=== PATIENT | male | born 1945 | race Caucasian/White ===

== ENCOUNTER 2018-10-31 20:29 | Emergency (ER) | payer MEDICARE, OTHER ==
[~2018-10-31] VITALS: Ht 170.2 cm; Wt 93.0 kg
[~2018-10-31 20:29] MED LIST: AMOCLA875 PO; CIPHYDOTSU OT; CIPR500 PO; FLUO20 PO; OXYACE5T PO; SIMV80 PO
[2018-10-31] MEDS ORDERED: PYRIDOSTIGMINE180 MG PO (20:52)
[2018-10-31] MEDS ORDERED: MYCOPHENOLATE500 MG PO (20:52)
[2018-10-31] MEDS ORDERED: ATORVASTATIN CA40 MG PO (20:53)
[2018-10-31] MEDS ORDERED: COREG6.25 MG PO (20:53)
[2018-10-31 21:30] LABS: Source, Urine Clean Catch
[2018-10-31 21:36] LABS: Blood, Urine 5+ (Neg); Glucose Qualitative, Urine 1+ (Neg); Ketones, Urine 2+ (Neg); Leukocyte Esterase, Urine 1+ (Neg); Nitrite, Urine Pos (Neg); Protein, Urine 3+ (Neg); Urobilinogen, Urine 1+ (Normal)
[2018-10-31 21:37] LABS: Appearance, Urine Cloudy (Clear); Bilirubin, Urine 1+ (Neg); Color, Urine Brown (P-Yellow)
[2018-10-31 21:45] LABS: Red Blood Cells, Urine TNTC /hpf (0-2); White Blood Cells, Urine 0-2 /hpf (0-5)
[2018-10-31 21:47] LABS: Amorphous Light (0-Heavy); Bacteria Many /hpf; Calcium Oxalate Crystals Few /hpf; Mucus Light (0-Heavy); Squamous Epithelial Cells Few /hpf (Few)
== END 2018-10-31 22:01 | disposition home or self-care (01) ==
LOC: ER 20:29
PROVIDERS: Physician Assistant
DX: N20.0 Calculus of kidney (principal); K42.9 Umbilical hernia without obstruction or gangrene; R82.71 Bacteriuria; I25.10 Atherosclerotic heart disease of native coronary artery without angina pectoris; G70.00 Myasthenia gravis without (acute) exacerbation; Z88.2 Allergy status to sulfonamides; Z79.899 Other long term (current) drug therapy; Z79.52 Long term (current) use of systemic steroids
CPT/HCPCS: 81001; 87086; 93005; 93010; 99283-25

== ENCOUNTER → 2019-05-29 | Outpatient (CLI) | payer MEDICARE, OTHER ==
[~2019-05-29] MED LIST changes: +ATORVASTATIN CA40 MG PO; +COREG6.25 MG PO; +MYCOPHENOLATE500 MG PO; +PYRIDOSTIGMINE180 MG PO
== END | disposition home or self-care (01) ==
LOC: LAB SHORT 10:37 → PLD 10:37
DX: C44.319 Basal cell carcinoma of skin of other parts of face (principal)
CPT/HCPCS: 88305

== ENCOUNTER 2019-06-24 02:34 | Emergency (ER) | payer MEDICARE, OTHER ==
[~2019-06-24] VITALS: Ht 170.2 cm; Wt 95.2 kg
[2019-06-24] MEDS ORDERED: Nexium10 MG PO (02:52)
[2019-06-24] MEDS ORDERED: ASPI81CH PO (02:52)
[2019-06-24] MEDS ORDERED: AMLO5 PO (02:53)
[2019-06-24 03:11] LABS: BASOPHILS ABSOLUTE AUTO 0.07 K/mm3 (0.00-0.23); BASOPHILS PERCENT AUTO 1 % (0-2); EOSINOPHILS ABSOLUTE AUTO 0.49 K/mm3 (0.00-0.68); EOSINOPHILS PERCENT AUTO 7 % (0-6); Hematocrit 48.5 % (37.0-53.0); Hemoglobin 16.2 g/dL (13.5-17.5); IMMATURE GRAN ABSOLUTE AUTO 0.01 K/mm3 (0.00-0.10); IMMATURE GRAN PERCENT AUTO 0 % (0-1); LYMPHOCYTES ABSOLUTE AUTO 1.91 K/mm3 (0.84-5.20); LYMPHOCYTES PERCENT AUTO 27 % (21-46); MONOCYTES ABSOLUTE AUTO 0.54 K/mm3 (0.16-1.47); MONOCYTES PERCENT AUTO 8 % (4-13); Mean Corpuscular HGB 30.2 pg (26.0-34.0); Mean Corpuscular HGB Conc 33.4 g/dL (31.5-36.5); Mean Corpuscular Volume 90 fL (80-100); Mean Platelet Volume 10.7 fL (9.1-12.4); NEUTROPHILS ABSOLUTE AUTO 4.09 K/mm3 (1.96-9.15); NEUTROPHILS PERCENT AUTO 58 % (41-73); Platelet Count 241 K/mm3 (150-400); RDW Standard Deviation 42.8 fL (35.1-46.3); Red Blood Cell Count 5.37 M/mm3 (4.30-5.90); White Blood Cell Count 7.11 K/mm3 (4.00-11.30)
[2019-06-24 03:56] LABS: Alanine Aminotransfer (ALT/SGP 30 U/L (12-78); Albumin/Globulin Ratio 1.2 (0.8-1.8); Alk Phos 79 U/L (50-136); Anion Gap 5 mmol/L (6-16); Aspartate Aminotrans (AST/SGOT 17 U/L (12-37); Bilirubin, Total 0.9 mg/dL (0.1-1.0); Blood Urea Nitrogen 16 mg/dL (8-24); Bun/Creatinine Ratio 20.2 (12.0-20.0); CO2, Blood 28 mmol/L (21-32); Calcium, Blood 9.1 mg/dL (8.5-10.1); Chloride, Blood 108 mmol/L (98-108); Creatinine, Blood 0.79 mg/dL (0.60-1.20); Globulin, Blood 3.4 g/dL (2.2-4.0); Glomerular Filtration Rate >60 (60-); Glucose, Blood 175 mg/dL (70-99); Magnesium, Blood 2.1 mg/dL (1.6-2.4); Sodium, Blood 141 mmol/L (136-145); Total Protein, Blood 7.4 g/dL (6.4-8.2); Troponin I <0.015 ng/mL (0.000-0.040)
[2019-06-24] MEDS ORDERED: HYDHCL25 PO (04:51)
== END 2019-06-24 05:01 | disposition home or self-care (01) ==
LOC: ER 02:34
PROVIDERS: Emergency Medicine
DX: R06.00 Dyspnea, unspecified (principal); F41.9 Anxiety disorder, unspecified; Z87.891 Personal history of nicotine dependence; Z79.899 Other long term (current) drug therapy; Z79.82 Long term (current) use of aspirin
CPT/HCPCS: 36415; 71045; 80053; 83735; 84484; 85025; 93005; 93010; 99285-25; U0003

== ENCOUNTER 2020-05-02 09:45 | Day surgery (SDC) | payer MEDICARE, OTHER ==
[~2020-05-02] VITALS: Ht 170.2 cm; Wt 96.0 kg
[~2020-05-02 09:45] MED LIST changes: +AMLO5 PO; +ASPI81CH PO; +HYDHCL25 PO; +MYCO250 PO; -MYCOPHENOLATE500 MG PO; +Nexium10 MG PO
[2020-05-02] MEDS ORDERED: FLUO10 PO (10:13)
[2020-05-02] MEDS ORDERED: Prinivil10 MG PO (10:14)
[2020-05-02] MEDS ORDERED: METF500C PO (10:14)
--- NOTE | 2020-05-02 11:36 | NUR ---
DR MORFIN IN AND DISCUSSED WITH PT THE NEED FOR ARELY PRIOR TO PROCEEDING WITH PACEMAKER. PT AND BOTH IN AGREMENT WITH PLAN.
--- NOTE | 2020-05-02 12:34 | NUR ---
ARELY FINISHED AND PT TO PROCEED WITH PACEMAKER PROCEDURE.
--- NOTE | 2020-05-02 18:05 | NUR ---
SHIFT SUMMARY PT ARRIVED THIS [facility]NOON [facility]. PT REPORTS INTERMITTEN DULL SORENESS AT THE LEFT SHOULDER BUT IS DECLINING TYLENOL AT THIS TIME. PT IS A&O X4. VS STABLE, PT ON RA. SLING IN PLACE, PT REMINDED NOT TO LIFT ELBOW AT OR ABOVE THE SHOULDER ON THE LEFT ARM. SCD'S IN PLACE AND PT PROVIDED WITH DR. MORFIN'S INSTRUCTIONS FOR PACER AFTERCARE. PT IS RESTING IN BED AT THIS TIME
--- NOTE | 2020-05-03 04:36 | NUR ---
SHIFT SUMMARY NO ACUTE CHANGES THIS SHIFT. VSS BESIDES OCCASIONAL HTN NOTED WITH SBP INTO 150'S. PT AXO. ON RA. REMAINS PACED PER TELEMETRY. PACEMAKER IMPLANT SITE PRESENTS W/OUT EXCESS SWELLING, REDNESS, HEAT, ETC. PT STATES SOME PAIN TO AREA BUT TYLENOL HELPFUL FOR RELIEF. ABX X2 INFUSED ORDERED. OTHERWISE, PT IN AND OUT OF SLING, DOESNT ALWAYS TOLERATE WELL BUT HAS BEEN GOOD AT LIMITING EXCESS MOVEMENT WITH L ARM. WILL CONTINUE TO MONITOR UNTIL SHIFT CHANGE.
[2020-05-03] MEDS ORDERED: CEPH500 PO (11:52)
== END 2020-05-03 12:03 | disposition home or self-care (01) ==
LOC: PCU 09:45 → MHTC 09:45 → PCU 09:46 → MHTC 09:46 → EDSTATUS 10:00 → MHTC 15:03 → PCU 15:03
DX: I44.2 Atrioventricular block, complete (principal); I25.10 Atherosclerotic heart disease of native coronary artery without angina pectoris; I49.8 Other specified cardiac arrhythmias; I35.0 Nonrheumatic aortic (valve) stenosis; I33.0 Acute and subacute infective endocarditis; I10 Essential (primary) hypertension; E78.5 Hyperlipidemia, unspecified; G70.00 Myasthenia gravis without (acute) exacerbation; R73.03 Prediabetes; Z96.649 Presence of unspecified artificial hip joint; Z79.82 Long term (current) use of aspirin; Z88.2 Allergy status to sulfonamides; Z95.1 Presence of aortocoronary bypass graft
CPT/HCPCS: 33208; 71045; 71046; 76937; 93312; 93325; 99152; 99153; A9270; C1781; C1785; C1894; C1898; J0690; J1644; J2250; J3010; J7030; J7040; J7517

== ENCOUNTER 2020-11-19 09:54 | Day surgery (SDC) | payer MEDICARE, OTHER ==
[~2020-11-19] VITALS: Ht 170.2 cm; Wt 96.8 kg
[~2020-11-19 09:54] MED LIST changes: +CEPH500 PO; +FLUO10 PO; +METF500C PO; +PYRI60 PO; +Prinivil10 MG PO; +TRAZ50 PO; +ZYRTEC10 M2 PO
[2020-11-19] MEDS ORDERED: ZYRTEC10 M2 (11:31)
--- NOTE | 2020-11-19 11:43 | NUR ---
Ambulatory in Day Surgery History, Chart, Medications and Allergies reviewed before start of procedure.Lungs clear T/O to Auscultation. Patient confirms NPO status and agrees with scheduled surgery. TOOK PT PHONE WITH HER.
--- NOTE | 2020-11-19 14:29 | NUR ---
1415 Patient up to Ambulate independently. Gait steady. Discharge instructions reviewed with patient. Patient verbalizes understanding. Copy given to patient to take home. Dressing to procedure site clean, dry, intact with no visible drainage, swelling, erythema or bruising noted. Patient States Post-Procedure ride home has been arranged. Discharged via wheelchair to private car for ride home. PTS GIVEN FULL DISCHARGE INSTRUCTIONS KAILEE
== END 2020-11-19 22:47 | disposition home or self-care (01) ==
LOC: ORSCMMR 09:54
PROVIDERS: Surgery
PROC: 0WUF0JZ Supplement Abdominal Wall with Synthetic Substitute, Open Approach (ICD-10-PCS; principal; 2020-11-19 11:30)
DX: K42.0 Umbilical hernia with obstruction, without gangrene (principal); I10 Essential (primary) hypertension; I21.9 Acute myocardial infarction, unspecified; Z87.891 Personal history of nicotine dependence; E66.9 Obesity, unspecified; Z68.33 Body mass index [BMI] 33.0-33.9, adult; Z79.899 Other long term (current) drug therapy
CPT/HCPCS: 82947; A9270; C1781; J0690; J1100; J1885; J2370; J2405; J2704; J3010; J7120

== ENCOUNTER 2023-01-05 12:34 | Emergency (ER) | payer OTHER ==
[~2023-01-05] VITALS: Ht 172.7 cm; Wt 94.3 kg
[~2023-01-05 12:34] MED LIST changes: +ZYRTEC10 M2
[2023-01-05 13:39] LABS: BASOPHILS ABSOLUTE AUTO 0.04 K/mm3 (0.00-0.23); BASOPHILS PERCENT AUTO 1 % (0-2); EOSINOPHILS ABSOLUTE AUTO 0.09 K/mm3 (0.00-0.68); EOSINOPHILS PERCENT AUTO 1 % (0-6); Hematocrit 46.4 % (37.0-53.0); Hemoglobin 15.9 g/dL (13.5-17.5); IMMATURE GRAN ABSOLUTE AUTO 0.03 K/mm3 (0.00-0.10); IMMATURE GRAN PERCENT AUTO 0 % (0-1); LYMPHOCYTES ABSOLUTE AUTO 1.61 K/mm3 (0.84-5.20); LYMPHOCYTES PERCENT AUTO 20 % (21-46); MONOCYTES ABSOLUTE AUTO 0.47 K/mm3 (0.16-1.47); MONOCYTES PERCENT AUTO 6 % (4-13); Mean Corpuscular HGB 31.1 pg (26.0-34.0); Mean Corpuscular HGB Conc 34.3 g/dL (31.5-36.5); Mean Corpuscular Volume 91 fL (80-100); Mean Platelet Volume 10.2 fL (9.1-12.4); NEUTROPHILS ABSOLUTE AUTO 5.69 K/mm3 (1.96-9.15); NEUTROPHILS PERCENT AUTO 72 % (41-73); Platelet Count 210 K/mm3 (150-400); RDW Coefficient Variation 13.2 % (11.7-14.2); RDW Standard Deviation 44.1 fL (35.1-46.3); Red Blood Cell Count 5.11 M/mm3 (4.30-5.90); White Blood Cell Count 7.93 K/mm3 (4.00-11.30)
[2023-01-05 14:00] VITALS: BP 135/93
[2023-01-05 14:00] LABS: Albumin/Globulin Ratio 1.3 (0.8-1.8); Bilirubin, Total 1.1 mg/dL (0.1-1.0); Bun/Creatinine Ratio 14.8 (12.0-20.0); Calcium, Blood 8.9 mg/dL (8.5-10.1); Creatinine, Blood 0.95 mg/dL (0.60-1.20); Globulin, Blood 3.1 g/dL (2.2-4.0); Potassium, Blood 4.4 mmol/L (3.5-5.5); Total Protein, Blood 7.1 g/dL (6.4-8.2)
[2023-01-05] MEDS ORDERED: PYRI60 PO (14:08)
[2023-01-05] MEDS ORDERED: TAMS.4ER PO (14:09)
== END 2023-01-05 14:34 | disposition home or self-care (01) ==
LOC: ER 12:34
PROVIDERS: Physician Assistant
DX: G45.9 Transient cerebral ischemic attack, unspecified (principal); G70.00 Myasthenia gravis without (acute) exacerbation; Z88.2 Allergy status to sulfonamides; Z79.899 Other long term (current) drug therapy; Z87.891 Personal history of nicotine dependence
CPT/HCPCS: 70450; 80053; 85025; 93005; 93010; 99284-25

== ENCOUNTER 2023-03-15 05:56 | Day surgery (SDC) | payer OTHER ==
[2023-03-15] VITALS (8 sets, daily range): BP systolic 100–133; BP diastolic 61–101
[~2023-03-15] VITALS: Ht 172.7 cm; Wt 96.0 kg
[~2023-03-15 05:56] MED LIST changes: +TAMS.4ER PO
[2023-03-15] MEDS ORDERED: Flomax0.4 MG PO (06:30)
[2023-03-15] MEDS ORDERED: CLOP75 PO (06:30)
--- NOTE | 2023-03-15 08:17 | NUR ---
PT AND VERBALIZED UNDERSTANDING OF WRITTEN AND VERBAL D/C INST. IV REMOVED. PT AMB TO W/C /S DIFFICULTY. TAKING PO FLUIDS WELL.
== END 2023-03-15 22:59 | disposition home or self-care (01) ==
LOC: MHTC 05:56
DX: G45.9 Transient cerebral ischemic attack, unspecified (principal); E11.9 Type 2 diabetes mellitus without complications; I25.118 Atherosclerotic heart disease of native coronary artery with other forms of angina pectoris; I10 Essential (primary) hypertension; G70.00 Myasthenia gravis without (acute) exacerbation; E66.9 Obesity, unspecified; E78.5 Hyperlipidemia, unspecified; Z88.2 Allergy status to sulfonamides; Z95.1 Presence of aortocoronary bypass graft; Z79.899 Other long term (current) drug therapy; Z79.84 Long term (current) use of oral hypoglycemic drugs; Z95.0 Presence of cardiac pacemaker
CPT/HCPCS: 93312; 93325; A9270; J2001; J2704; J7030